=== PATIENT | male | born 1990 | race Two or more races ===

== ENCOUNTER 2019-04-10 16:00 | Emergency (ER) | payer MEDICAID ==
[~2019-04-10] VITALS: Ht 172.7 cm; Wt 75.0 kg
[2019-04-10] MEDS ORDERED: HALOPERIDOL LACTATE 5MG/ML VIAL IM ONE (16:44)
[2019-04-10] MEDS ORDERED: LORAZEPAM 2MG/ML CPJ IM STA (16:46)
[2019-04-10] MEDS ORDERED: HALOPERIDOL LACTATE 5MG/ML VIAL IM STA (16:46)
[2019-04-10] MEDS ORDERED: DIPHENHYDRAMINE 50MG/ML VIAL IM STA (16:46)
[2019-04-10 17:09] LABS: HEMATOCRIT. 40.7 % (42.0-52.0); HEMOGLOBIN. 13.7 g/dL (14.0-18.0); MEAN CORPUSCULAR HEMOGLOBIN 31.4 pg (28.0-32.0); MEAN CORPUSCULAR VOLUME 93.3 fL (80.0-94.0); MEAN PLATELET VOLUME 7.3 fl (7.4-10.4); PLATELET 186 x1000/uL (130-400); RED BLOOD CELL COUNT 4.36 mill/uL (4.7-6.1); RED CELL DISTRIBUTION WIDTH 15.6 % (11.6-14.6)
[2019-04-10 17:11] LABS: CHLORIDE 107 mEq/L (98-107)
[2019-04-10 17:38] LABS: PLATELET ESTIMATE NORMAL
[2019-04-10 17:41] LABS: ETHANOL BLOOD 447 mg/dL
[2019-04-10 20:06] LABS: *AMPHETAMINES SCREEN URINE NEGATIVE (NEGATIVE); *BARBITURATES SCREEN URINE NEGATIVE (NEGATIVE); *BENZODIAZEPINES SCREEN URINE NEGATIVE (NEGATIVE); *COCAINE SCREEN URINE NEGATIVE (NEGATIVE); METHADONE URINE SCREEN NEGATIVE (NEGATIVE); OPIATES URINE SCREEN NEGATIVE (NEGATIVE)
[2019-04-10 20:07] LABS: CANNABINOID URINE SCREEN NEGATIVE (NEGATIVE); PHENCYCLIDINE URINE SCREEN NEGATIVE (NEGATIVE)
[2019-04-11 01:32] VITALS: BP 122/91
== END 2019-04-11 01:36 | disposition home or self-care (01) ==
LOC: ER 16:00
DX: G92 Toxic encephalopathy (principal); R45.1 Restlessness and agitation; F11.10 Opioid abuse, uncomplicated
CPT/HCPCS: 36415; 80053; 80305; 80307; 80320; 80329; 85025; 96372; 99284; J1200; J1630; G0480

== ENCOUNTER 2020-02-22 17:27 | Emergency (ER) | payer MEDICAID, OTHER ==
[~2020-02-22] VITALS: Ht 175.3 cm; Wt 64.0 kg
[2020-02-22 18:32] LABS: BASOPHILS % 2.6 % (0.0-2.0); HEMOGLOBIN. 13.7 g/dL (14.0-18.0); LYMPHOCYTES % 43.7 % (20.0-50.0); MEAN CORPUSCULAR HEMOGLOBIN 31.9 pg (28.0-32.0); MEAN CORPUSCULAR VOLUME 93.3 fL (80.0-94.0); MEAN PLATELET VOLUME 7.3 fl (7.4-10.4); MONOCYTES % 6.8 % (2.0-8.0); NEUTROPHILS % 44.9 % (40.0-76.0); PLATELET 227 x1000/uL (130-400); RED BLOOD CELL COUNT 4.29 mill/uL (4.7-6.1); RED CELL DISTRIBUTION WIDTH 14.3 % (11.6-14.6)
[2020-02-22 18:44] LABS: CHLORIDE 104 mEq/L (98-107)
[2020-02-22 18:58] LABS: ETHANOL BLOOD 432 mg/dL
[2020-02-22 18:59] LABS: *AMPHETAMINES SCREEN URINE NEGATIVE (NEGATIVE); *BARBITURATES SCREEN URINE NEGATIVE (NEGATIVE); *BENZODIAZEPINES SCREEN URINE NEGATIVE (NEGATIVE)
[2020-02-22 19:00] LABS: *COCAINE SCREEN URINE NEGATIVE (NEGATIVE); CANNABINOID URINE SCREEN NEGATIVE (NEGATIVE); METHADONE URINE SCREEN NEGATIVE (NEGATIVE); OPIATES URINE SCREEN NEGATIVE (NEGATIVE); PHENCYCLIDINE URINE SCREEN NEGATIVE (NEGATIVE)
[2020-02-22 19:01] LABS: CLARITY URINE CLEAR (CLEAR); COLOR URINE GREEN (YELLOW); KETONES URINE NEGATIVE (NEGATIVE); LEUKOCYTE ESTERASE URINE NEGATIVE (NEGATIVE); NITRITE URINE NEGATIVE (NEGATIVE); OCCULT BLOOD URINE NEGATIVE (NEGATIVE); PH URINE 6.5 (4.5-8.0); PROTEIN URINE NEGATIVE (NEGATIVE); SPECIFIC GRAVITY URINE 1.002 (1.005-1.030); UROBILINOGEN URINE 0.2 E.U./dL (0.2-1.0)
[2020-02-23 03:35] VITALS: BP 116/70
== END 2020-02-23 04:03 | disposition home or self-care (01) ==
LOC: ER 17:27
DX: F10.129 Alcohol abuse with intoxication, unspecified (principal); Y90.8 Blood alcohol level of 240 mg/100 ml or more; F11.10 Opioid abuse, uncomplicated
CPT/HCPCS: 36415; 80053; 80305; 80320; 81003; 85025; 99285; G0480